=== PATIENT | female | born 1945 | race Caucasian/White ===

== ENCOUNTER → 2017-05-04 | Outpatient (CLI) | payer MEDICARE ==
[~2017-05-04] MED LIST: AMLO5TAB2 PO; BENA25CA4 PO; FURO20TA PO; LOSA100T2 PO; PANT40TA3 PO; TRIA TOPICAL
[2017-05-04 12:00] LABS: AUTOMATED NEUTROPHIL # 6.5 TH/MM3 (1.8-7.7); BASOPHIL # 0.1 TH/MM3 (0-0.2); BASOPHIL % 0.8 % (0.0-2.0); EOSINOPHIL # 0.2 TH/MM3 (0-0.4); EOSINOPHIL % 2.4 % (0.0-4.0); HEMATOCRIT 38.3 % (35.0-46.0); HEMO FLAGS DIFF FINAL; LYMPH % 20.4 % (9.0-44.0); LYMPHOCYTE # 1.9 TH/MM3 (1.0-4.8); MEAN CELL VOLUME 79.5 FL (80.0-100.0); MEAN CORPUSCULAR HEMOGLOBIN 27.7 PG (27.0-34.0); MEAN CORPUSCULAR HGB CONC 34.8 % (32.0-36.0); MONO % 6.5 % (0.0-8.0); NEUT % 69.9 % (16.0-70.0); PLATELET COUNT 300 TH/MM3 (150-450); RED BLOOD COUNT 4.82 MIL/MM3 (4.00-5.30); RED CELL DISTRIBUTION WIDTH 14.1 % (11.6-17.2); WHITE BLOOD COUNT 9.3 TH/MM3 (4.0-11.0)
[2017-05-04 12:08] LABS: INTERNATIONAL NORMALIZED RATIO 0.9 RATIO; PROTHROMBIN TIME - PATIENT 10.4 SEC (9.8-11.6)
[2017-05-04 12:27] LABS: ALT (GPT) 23 U/L (10-53); ANION GAP 8 MEQ/L (5-15); AST (GOT) 23 U/L (15-37); BLOOD UREA NITROGEN 32 MG/DL (7-18); CHLORIDE 100 MEQ/L (98-107); GLOMERULAR FILTRATION RATE 44 ML/MIN (>89); GLUCOSE,FASTING 107 MG/DL (74-99); POTASSIUM 3.4 MEQ/L (3.5-5.1); SODIUM (NA) 134 MEQ/L (136-145)
[2017-05-04 12:30] LABS: ALKALINE PHOSPHATASE 101 U/L (45-117); TOTAL BILIRUBIN ADULT 0.9 MG/DL (0.2-1.0)
--- NOTE | 2017-05-04 13:13 | RADRPT ---
EXAM DATE/TIME: 05/04/2017 11:56 [place] COMPARISON: No previous studies available for comparison. INDICATIONS : Evaluate for penumonia, pneumothorax, or communicable disease. Pre op for hysterectomy. MEDICAL HISTORY : None. SURGICAL HISTORY : None. ENCOUNTER: Initial ACUITY: 1 day PAIN SCORE: 0/10 LOCATION: chest FINDINGS: PA and lateral views of the chest demonstrate the lungs to be symmetrically aerated without evidence of mass, infiltrate or effusion. The cardiomediastinal contours are unremarkable. Osseous structure s are intact. There are degenerative changes of the thoracic spine. CONCLUSION: Normal examination for a patient of this age. Jae Celeste MD on May 04, 2017 at 13:12 Board Certified Radiologist. This report was verified electronically.
--- NOTE | 2017-05-05 22:03 | EKG ---
Date Performed: 05/04/2017 Time Performed: 11:44:53 PTAGE: 71 years EKG: Sinus rhythm NORMAL ECG NO PREVIOUS TRACING DOCTOR: Delonte Gomez Interpretating Date/Time 05/05/2017 21:42:58
== END ==
LOC: CPRE 10:47
PROVIDERS: ATTEND Obstetrics & Gynecology Gynecologic Oncology
DX: Z01.810 Encounter for preprocedural cardiovascular examination (principal); Z01.811 Encounter for preprocedural respiratory examination; Z01.812 Encounter for preprocedural laboratory examination; C54.1 Malignant neoplasm of endometrium
CPT/HCPCS: 36415; 71020; 80053; 85025; 85610; 85730; 93005

== ENCOUNTER 2017-05-18 05:20 | Observation (INO) | payer MEDICARE ==
[~2017-05-18] VITALS: Ht 160 cm; Wt 86.9 kg
[2017-05-18] MEDS ORDERED: ZOFR4TAB PO (06:28)
[2017-05-18] MEDS ORDERED: METOPROLOL TARTRATE 25 MG TAB PO PRN (06:30)
[2017-05-18] MEDS ORDERED: INSULIN HUMAN REGULAR 1,000 UNITS/10 ML VIAL SQ PRN (06:30)
[2017-05-18] MEDS ORDERED: HEPARIN SODIUM - SQ 10,000 UNITS/ML VIAL SQ SCH (06:30)
[2017-05-18] MEDS ORDERED: SODIUM CHLORID 0.9% 500 ML IV PRN (06:30)
[2017-05-18] MEDS ORDERED: LEVOFLOXACIN 500 MG PREMIX INJ 100 ML IV SCH (06:30)
[2017-05-18] MEDS ORDERED: POVIDONE IODINE 5% (ANTISEPSIS KIT) 4 APPLICATIONS EACH NARE PRN (06:30)
[2017-05-18] MEDS ORDERED: CLINDAMYCIN INJ 900 MG in SODIUM CHLORIDE 0.9% INJ 100 ML IV SCH (06:30)
[2017-05-18] MEDS ORDERED: SODIUM CHLORIDE FLUSH PRN IV FLUSH (06:30)
[2017-05-18] MEDS ORDERED: LACTATED RINGER'S 1000 ML IV PRN (06:30)
[2017-05-18] MEDS ORDERED: CHLORHEXIDINE GLUCONATE 2 % 1 PACK (2 CLOTHS) TOPICAL PRN (06:30)
[2017-05-18] MEDS ORDERED: SODIUM CHLORIDE 0.9% INJ 100 ML ONE (06:35)
[2017-05-18] MEDS ORDERED: SUGAMMADEX SODIUM 200 MG/2 ML VIAL IV PUSH ONE ×2 (06:45)
[2017-05-18] MEDS ORDERED: ARTIFICIAL TEARS OPTH OINT 3.5 APPLIC/3.5 GM TUBO ONE (06:45)
[2017-05-18] MEDS ORDERED: ACETAMINOPHEN 1000 MG/100 ML 100 ML IV ONE (06:45)
[2017-05-18] MEDS ORDERED: LIDOCAINE 1%/EPINEPHrine 1:100,000 SOLN 20 ML VIAL ONE (06:55)
[2017-05-18] MEDS ORDERED: FUROSEMIDE 20 MG TAB PO PRN (11:15)
[2017-05-18] MEDS ORDERED: LIDOCAINE 2%/EPINEPHrine PF 1:200,000 20ML SDV INFIL ONE (11:16)
[2017-05-18] MEDS ORDERED: DO NOT ADM ANY ANTICOAGULANT DRUGS PRN (11:24)
[2017-05-18] MEDS ORDERED: LORazepam 0.5 MG TAB PO PRN (11:30)
[2017-05-18] MEDS ORDERED: oxyCODONE/ACETAMINOPHEN 5 MG/325 MG TAB PO PRN ×2 (11:30)
[2017-05-18] MEDS ORDERED: ONDANSETRON HCL 4 MG/2 ML VIAL IVP PRN (11:30)
[2017-05-18] MEDS ORDERED: diphenhydrAMINE HCL 25 MG CAP PO PRN (11:30)
[2017-05-18] MEDS ORDERED: SODIUM CHLORIDE 0.9% FLUSH 10 ML FLUSH IV FLUSH PRN (11:30)
[2017-05-18] MEDS ORDERED: PROPOFOL 200 MG/20 ML AMP IV ONE (12:00)
[2017-05-18] MEDS ORDERED: STERILE WATER FOR INJECTION 20 ML VIAL ONE (12:00)
[2017-05-18] MEDS ORDERED: ePHEDrine/NS 25 MG/5 ML SYR IV ONE (12:00)
[2017-05-18] MEDS ORDERED: ROCURONIUM INJ 50 MG/5 ML SYRINGE IV PUSH ONE (12:00)
[2017-05-18] MEDS ORDERED: DEXAMETHASONE SOD PHOS 4 MG/ML VIAL IV ONE (12:00)
[2017-05-18] MEDS ORDERED: MIDAZOLAM HCL 2 MG/2 ML VIAL IV ONE (12:00)
[2017-05-18] MEDS ORDERED: LIDOCAINE HCL 1% PF 5 ML AMPULE OTHER ONE (12:00)
[2017-05-18] MEDS ORDERED: VECURONIUM BROMIDE 20 MG VIAL ONE (12:00)
[2017-05-18] MEDS ORDERED: MORPHINE SULFATE 4 MG/ML INJ IV ONE (12:00)
[2017-05-18] MEDS ORDERED: ONDANSETRON HCL 4 MG/2 ML VIAL IV PUSH ONE (12:00)
[2017-05-18] MEDS ORDERED: NORMOSOL R INJ 1,000 ML IV ONE (12:00)
[2017-05-18] MEDS ORDERED: LABETALOL HCL 100 MG/20 ML VIAL IV ONE (12:00)
[2017-05-18] MEDS: D5-1/2 NS + KCL 20 MEQ INJ 1,000 ML IV SCH (12:10)
[2017-05-18 12:59] VITALS: BP 120/60; PULSE 86; RESP 20; TEMP 97.1; O2SAT 99
[2017-05-18] MEDS: KETOROLAC TROMETHAMINE 30 MG/ML (IVP) VIAL IVP SCH ×3 (13:00→19:18)
--- NOTE | 2017-05-18 13:42 | MP ---
cc: LEON FERRARA MD, JULIE D. MD NIEWALD, ANDREW DATE OF SURGERY 05/18/2017 PREOPERATIVE DIAGNOSES 1. Grade 1 endometrial cancer. 2. Pelvic adenopathy on imaging. POSTOPERATIVE DIAGNOSES 1. Grade 1 endometrial cancer. 2. Pelvic adenopathy on imaging. PROCEDURE Robotic-assisted laparoscopic hysterectomy, bilateral salpingo-oophorectomy, bilateral pelvic excisional lymph node biopsies. 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 ANESTHESIA General endotracheal anesthesia. ESTIMATED BLOOD LOSS 100 cc. IV FLUIDS 1000 cc. URINE OUTPUT 200 cc. HISTORY This is a 71-year-old female with postmenopausal bleeding that led to endometrial biopsy that showed a grade 1 endometrial cancer. Imaging showed some borderline adenopathy in the pelvis. No other changes to suggest metastatic disease, no paraaortic adenopathy, no intraperitoneal or retroperitoneal nodularity. In the abdomen thee was no ascites. She was counseled regarding these findings. She was is seen again in the preop holding area. Questions were answered. She expressed good understanding as per our prior discussion. We try to balance thoroughness with the risk of morbidity. Specifically, she had some chronic lower extremity swelling and some decreased range of motion due to preexisting condition and we agreed to isolate our dissection on any obvious enlarged lymph nodes to increase diagnostic accuracy but to try to offset morbidities such as worsening lymphedema that might occur with full lymphadenectomy. She is definitely in favor of having any abnormal lymph nodes removed. FINDINGS The uterus is small, sounds to 6.5 cm. She has a very narrow pelvic outlet, narrow introitus that provided some difficulty delivering the specimen, even though the uterus was small. In the pelvis there were three enlarged lymph nodes seen in each pelvic dissection bed, the largest of which was approximately 2 cm to probably about 2 to 2.5 cm. The uterus once removed showed the tumor to be approximately 3.5 to 4 cm in diameter. It was occupying the anterior and posterior feldman of the uterus. There was no cervical extension. Other than the aforementioned prominent lymph nodes, the remainder of the anatomy appeared normal in that there were no peritoneal implants. The liver diaphragm edges were smooth. Omentum, large and small bowel and adjacent mesentery were normal without implants. There were diverticulum noted with no evidence of diverticulitis, minimal adhesions of the pelvis. PROCEDURE She was taken to the operating room, placed in dorsal lithotomy position after general endotracheal anesthesia was administered. Time-out was undertaken. She was identified by sight recognition and hospital ID bracelet and the proposed procedure was reviewed and confirmed. She was carefully positioned in padded Eric stirrups. Her arms were padded and secured to the sides. She was further secured to the operating table with eggcrate padding and tape in across-chest, [id number] fashion. All sites were noted be properly aligned with no malalignments or pressure points. She was prepped and draped in sterile fashion, placed in high lithotomy position, the cervix grasped, the uterine cavity sounded, small V-Care manipulator inserted and secured in the usual fashion. Lara catheter was placed in the bladder. She was returned to low lithotomy position. Change of sterile gloves was undertaken and we confirmed that an orogastric tube was in the stomach on suction. With manual elevation of the abdominal wall and direct laparoscopic visualization, a 5-mm cannula was placed in the left upper quadrant and atraumatic entry was confirmed. Carbon dioxide gas was insufflated and a 12-mm cannula placed in the midline above the umbilicus. An 8-mm cannula was placed in the right upper quadrant, left lateral quadrant. The original 5 was exchanged for an 8-mm cannula. She was placed in Trendelenburg position. Peritoneal washings were obtained for cytology. The anatomy was explored with findings as described above. The small bowel folded back on its mesenteric root. Three Ray-Evita sponges were placed along the root of the small bowel mesentery. The robotic system was brought onto the operative field, attached in the usual fashion. Monopolar scissors, fenestrated bipolar forceps and ProGrasp manipulators was placed in arms #1, 2 and 3 respectively and I took my place at the surgeon's console. The right round ligament was isolated, cauterized, transected. The anterior and posterior leafs of the broad ligament were opened. The right ureter was identified. The right infundibulopelvic ligament was isolated. The intervening peritoneum was opened. The infundibulopelvic ligament was isolated to the level of the pelvic brim where it was cauterized and transected. The posterior peritoneum was dissected off the right side of the uterus and cervix and the right vesicouterine peritoneum was dissected off the lower uterine segment and cervix. The right uterine vessels were cauterized and transected as were the cardinal, paracervical and uterosacral ligaments. Attention was directed to the right pelvic lymph nodes where the obturator, perivesical and pararectal spaces were open. Three prominent lymph nodes were identified. One was in the bifurcation of the external and internal iliac vessels, the other was in the obturator space ventral to the obturator nerve and the largest lymph node was in the distal external iliac region. Each of these lymph nodes were isolated with bipolar cautery and sharp dissection. Each were dissected away from surrounding structures. They were placed on a Ray-Evita sponge in the right pericolic gutter for later retrieval. Further palpation and inspection of the lymph node basin revealed no additional enlarged lymph nodes and care was taken to avoid excessive dissection and no other abnormalities were noted. Attention was directed toward the left side. The left round ligament was isolated, cauterized and transected. The anterior and posterior leaves of the broad ligament were opened. The left ureter was identified. The left infundibulopelvic ligament was isolated. The intervening peritoneum was opened. The infundibulopelvic ligament was cauterized to the level of the pelvic brim where was it transected. Posterior peritoneum was opened along the left side of the uterus and cervix and the left vesicouterine peritoneum dissected off the lower uterine segment and cervix. The left uterine vessels were skeletonized, cauterized and transected as were the cardinal, paracervical and uterosacral ligaments. Attention was now directed to the left pelvic lymph nodes. The paravesical obturator and pararectal spaces were opened. An enlarged lymph node was noted all along the external iliac artery and then two enlarged lymph nodes were noted in the obturator space. Each of these were isolated from surrounding tissue, bipolar cautery and sharp dissection were used to dissect them free. They were placed in the right pericolic gutter for later retrieval. Re-inspection and palpation of the left pelvic lymph nodes showed no other abnormalities. The paraaortic and paracaval areas were now inspected, palpated. There were no appreciably enlarged lymph nodes in the paraaortic or paracaval region and so no further dissection was carried out in this region. Attention redirected to the pelvis. Colpotomy was performed the cervix from the upper vagina. The specimen was withdrawn transvaginally including uterus, cervix, tubes and ovaries and a pneumooccluder balloon placed in the vagina to maintain pneumoperitoneum. Instruments #1 and 3 were exchanged for needle drivers as a 0 Vicryl suture was introduced. The vaginal cuff was closed starting at the left corner, full-thickness closure including the uterosacral ligament, posterior peritoneum, tied via instrument. The closure was held on counter-traction as a full-thickness continuous closure was carried across the vaginal apex to the contralateral corner where it was similarly affixed, secured and tied. The needle was cut and removed. The integrity the bladder was confirmed by filling the bladder with saline dyed with methylene blue. It distended nicely under pressure. There were no weak spots in the bladder. No defects. There was a good margin between the vaginal cuff suture line and the bladder and the bladder was drained. The ureters were with good peristalsis bilaterally and the neurovascular structures were intact. The pelvis was thoroughly irrigated, small bleeders rendered hemostatic with bipolar cautery and it was felt that all reasonable surgical objectives had been completed. Rosalva hemostatic powder was placed in the lymph node dissection beds and across the vaginal cuff. The robotic instruments were removed. The robotic system was disengaged from the operative field and I reentered the bedside under sterile condition. The 12 cm EndoCatch bag was introduced and the lymph nodes were collected and brought out through the 12-mm incision contained within the EndoCatch bag. Then each of the three Ray-Evita sponges that had been placed in the peritoneal cavity were removed. Each were removed individually and inspected and noted to be removed in their entirety. Visual inspection confirmed no remaining foreign objects in the peritoneal cavity. Preliminary counts were correct. The 12-mm fascial defect was closed with interrupted 0 Vicryl sutures using a fascial closure device, tied securely, rendered the fascia completely airtight and hemostatic. The remaining cannulas were withdrawn. Carbon dioxide gas was removed from the peritoneal cavity. 3-0 Vicryl subcutaneous, 3-0 Vicryl subcuticular and Steri-Strips were used to close these incisions. She was placed again in lithotomy position. Pelvic exam confirmed the vaginal cuff was well-supported. There were no vaginal lacerations. There was some superficial irritation to the vaginal mucosa which was rendered hemostatic with the remaining Rosalva hemostatic powder and at the introitus with silver nitrate. There were no remaining foreign objects in the vagina. Final counts were correct. She was returned to dorsal supine position and pending reversal of anesthesia when I left the operating room to precede her to the Post-Anesthesia Care Unit. MD MARISABEL Finn/DI /12:05 PM /1:14 PM
[2017-05-18] MEDS ORDERED: SIMETHICONE 125 MG CHEWABLE TAB PO PRN (14:00)
--- NOTE | 2017-05-18 14:06 | PD.ONC.PN ---
Subjective Subjective Remarks post op note: pt is resting in bed states feels pressure, RN states sharma has been advanced...sharma is draining and RN to recheck will write for gas X as well denies any pain at this time friend at bedside Objective Data Date Time Temp Pulse Resp B/P (MAP) Pulse Ox O2 Delivery O2 Flow Rate FiO2 05/18/17 12:59 97.1 86 20 120/60 (80) 99 05/18/17 06:31 97.4 68 22 111/61 (78) 97 05/18/17 05/18/17 05/18/17 07:00 15:00 23:00 Intake Total 1000 ml Output Total 300 ml Balance 700 ml Administered Medications Medications (Trade) Dose Ordered Sig/Janeth Route PRN Reason Start Time Stop Time Status Last Admin Dose Admin Chlorhexidine Gluconate (Chlorhexidine 2% Cloth) 3 pack PROPRIETARY TRADER PRN TOPICAL SEE LABEL COMMENTS 05/18/17 06:30 05/21/17 06:29 05/18/17 06:00 Heparin Sodium (Porcine) (Heparin Inj) 5,000 units PROPRIETARY TRADER SQ 05/18/17 06:30 05/18/17 21:00 05/18/17 06:55 Clindamycin Phosphate 900 mg/ Sodium Chloride 106 ml @ 212 mls/hr PROPRIETARY TRADER IV 05/18/17 06:30 05/18/17 21:00 05/18/17 07:50 Levofloxacin/ Dextrose 100 ml @ 100 mls/hr PROPRIETARY TRADER IV 05/18/17 06:30 05/18/17 21:00 05/18/17 06:47 Potassium Chloride/Dextrose/ Sod Cl 1,000 ml @ 75 mls/hr [id number] IV 05/18/17 11:16 05/18/17 12:10 Oxycodone/ Acetaminophen (Percocet 5-325 Mg) 1 tab Q4H PRN PO PAIN SCALE 1 TO 5 05/18/17 11:30 05/18/17 12:53 Ondansetron HCl (Zofran Inj) 4 mg Q6H PRN IVP NAUSEA OR VOMITING 05/18/17 11:30 05/18/17 12:51 Objective Remarks GENERAL: Well-nourished, well-developed patient. SKIN: Warm and dry. HEAD: Normocephalic. mild facial swelling EYES: No scleral icterus. No injection or drainage. CARDIOVASCULAR: Regular rate and rhythm without murmurs. RESPIRATORY: Breath sounds equal bilaterally. No accessory muscle use. GASTROINTESTINAL: SS are c/d/i EXTREMITIES: teds and scds MUSCULOSKELETAL: Adequate muscle tone. NEUROLOGICAL: No obvious focal deficit. Awake, alert, and oriented x3. PSYCHIATRIC: Appropriate mood and affect; insight and judgment normal. Assessment/Plan Problem List: (1) Post-operative state ICD Codes: Z98.890 - Other specified postprocedural states Status: Acute Plan: s/p RA lap hyst with BSO and lymph node dissection post op orders in chart ADAT will add gas x OOB to chair [place] Toradol and Percocet or pain anticipate discharge home tomorrow (2) Endometrial cancer ICD Codes: C54.1 - Malignant neoplasm of endometrium Plan: s/p RA lap hyst bso with LND Miles Caceres May 18, 2017 14:06
[2017-05-18 15:30] VITALS: BP 121/71; PULSE 87; RESP 18; TEMP 98.1; O2SAT 99
[2017-05-18 20:34] VITALS: BP 124/65; PULSE 77; RESP 17; TEMP 98.3; O2SAT 98
[2017-05-18] MEDS: SODIUM CHLORIDE 0.9% FLUSH 10 ML FLUSH IV FLUSH SCH (20:36)
[2017-05-18] MEDS: PANTOPRAZOLE SOD 40 MG DELAYED RELEASE TAB PO SCH (20:36)
[2017-05-18 20:40] VITALS: PULSE 77
[2017-05-18] MEDS: SODIUM CHLORIDE FLUSH BID IV FLUSH SCH (20:46)
[2017-05-19] MEDS: KETOROLAC TROMETHAMINE 30 MG/ML (IVP) VIAL IVP SCH ×2 (00:20→05:23)
[2017-05-19] MEDS: D5-1/2 NS + KCL 20 MEQ INJ 1,000 ML IV SCH (00:20)
[2017-05-19 00:21] VITALS: BP_SYST 112; BP_DIAS 66; BP_DIAS 86; PULSE 74; RESP 15; TEMP 98.4; O2SAT 96
[2017-05-19 00:27] VITALS: PULSE 67
[2017-05-19 04:02] VITALS: PULSE 67
[2017-05-19 05:26] VITALS: BP 126/66; PULSE 73; RESP 17; TEMP 98.5; O2SAT 94
[2017-05-19] MEDS ORDERED: OXYC1TAB63 PO (07:04)
[2017-05-19 07:53] VITALS: BP 119/67; PULSE 66; RESP 18; TEMP 97.9; O2SAT 98
[2017-05-19 07:57] LABS: AUTOMATED NEUTROPHIL # 7.1 TH/MM3 (1.8-7.7); BASOPHIL % 0.3 % (0.0-2.0); EOSINOPHIL % 0.3 % (0.0-4.0); HEMATOCRIT 31.3 % (35.0-46.0); HEMO FLAGS DIFF FINAL; LYMPH % 14.9 % (9.0-44.0); LYMPHOCYTE # 1.4 TH/MM3 (1.0-4.8); MEAN CELL VOLUME 81.4 FL (80.0-100.0); MEAN CORPUSCULAR HEMOGLOBIN 28.3 PG (27.0-34.0); MEAN CORPUSCULAR HGB CONC 34.7 % (32.0-36.0); MONO % 8.7 % (0.0-8.0); NEUT % 75.8 % (16.0-70.0); PLATELET COUNT 213 TH/MM3 (150-450); RED BLOOD COUNT 3.85 MIL/MM3 (4.00-5.30); RED CELL DISTRIBUTION WIDTH 14.4 % (11.6-17.2); WHITE BLOOD COUNT 9.4 TH/MM3 (4.0-11.0)
[2017-05-19] MEDS: PANTOPRAZOLE SOD 40 MG DELAYED RELEASE TAB PO SCH (08:03)
[2017-05-19] MEDS: HYDROCHLOROTHIAZIDE 25 MG TAB PO SCH ×2 (08:03→08:04)
[2017-05-19] MEDS: SODIUM CHLORIDE FLUSH BID IV FLUSH SCH (08:04)
[2017-05-19] MEDS: SODIUM CHLORIDE 0.9% FLUSH 10 ML FLUSH IV FLUSH SCH (08:04)
[2017-05-19 08:28] VITALS: PULSE 63
[2017-05-19 08:30] LABS: POTASSIUM 3.1 MEQ/L (3.5-5.1)
[2017-05-19] MEDS ORDERED: LOSARTAN 50 MG TAB PO SCH (09:00)
[2017-05-19] MEDS ORDERED: amLODIPine BESYLATE 5 MG TAB PO SCH (09:00)
[2017-05-19] MEDS ORDERED: NON-FORMULARY DRUG (Losartan-Hydrochlorothiazide 1 TAB) PO SCH (09:00)
--- NOTE | 2017-05-23 08:05 | MD ---
cc: LEON BLISS MD,GINETTE PARKER MD ADMISSION DATE: 05/18/2017 DISCHARGE DATE: 05/19/2017 PROCEDURE 05/18/2017 - Robotic-assisted laparoscopic hysterectomy, bilateral salpingo-oophorectomy, bilateral pelvic lymph node excisional biopsies. DIAGNOSIS Endometrial cancer. HOSPITAL COURSE She did well in the early postop period, hemodynamically stable, tolerating oral intake. Lara catheter removed pending voiding. In's and out's 2865 over 1260. Labs pending at the time of this dictation. PHYSICAL EXAMINATION VITAL SIGNS: Afebrile, pulse 67-77, blood pressure 112-126/66, O2 saturations greater than or equal to 96% while awake. LUNGS: Clear to auscultation except for Mild basilar rales. CARDIOVASCULAR: Regular rate and rhythm. ABDOMEN: Soft. Incisions clean and dry. VAMP SEAMER: No bleeding. EXTREMITIES: Nontender. ASSESSMENT Postoperative day #1 doing well in early postop period. FINDINGS Preliminary pathology, steps taken were reviewed. Activities and restrictions discussed. Questions were answered. She expressed good understanding. PLAN Anticipate discharge to home today. Our office number is again made available. She is to call our office to schedule followup within 2 weeks. She is to resume prior medications. She will have a prescription for Percocet. She is to contact our office should she have any questions or problems between now and the time of scheduled followup. Leon Bliss MD KM/SSB /7:11 AM /9:05 AM
== END 2017-05-19 11:38 | disposition home or self-care (01) ==
LOC: HSDC 05:20 → HCIS 11:18
PROVIDERS: ADMIT Obstetrics & Gynecology Gynecologic Oncology; ATTEND Obstetrics & Gynecology Gynecologic Oncology
DX: C54.1 Malignant neoplasm of endometrium (principal); N95.0 Postmenopausal bleeding; R59.0 Localized enlarged lymph nodes; I10 Essential (primary) hypertension
CPT/HCPCS: 00840; 38571; 58552; 80048; 85025; 86850; 86900; 86901; 88307; 88309; 88331; 94150; 96361; 96374; 96375; 96376; G0378; J0131; J1100; J1644; J1885; J1956; J2250; J2270; J2405; J3010; J3480; J7120